=== PATIENT | female | born 1970 | race Caucasian/White ===

== ENCOUNTER 2018-08-05 17:29 | Emergency (ER) | payer OTHER | END 2018-08-05 18:18 | disposition left against medical advice (07) | LOC: M.ERS 17:29 | DX: Z53.21 Procedure and treatment not carried out due to patient leaving prior to being seen by health care provider (principal) ==

== ENCOUNTER 2018-08-16 19:13 | Emergency (ER) | payer OTHER ==
[~2018-08-16] VITALS: Ht 162.6 cm; Wt 63.5 kg
[2018-08-16] MEDS ORDERED: TRAMADOL 50 MG50 MG PO (19:32)
[2018-08-16] MEDS ORDERED: NEURONTIN 300300 M1 PO (19:32)
[2018-08-16 20:17] LABS: ABSOLUTE BASOPHILS 0.1 thou/uL (0.0-0.2); ABSOLUTE EOSINOPHILS 0.1 thou/uL (0.0-0.7); ABSOLUTE LYMPHOCYTES 1.7 thou/uL (0.8-5.3); ABSOLUTE MONOCYTES 1.8 thou/uL (0.0-1.2); ABSOLUTE NEUTROPHILS 10.2 thou/uL (1.6-8.1); BASOPHILS 0.7 %; HEMATOCRIT 28.8 % (37.0-47.0); HEMOGLOBIN 8.5 gm/dL (12.0-15.0); LYMPHOCYTES 12.2 %; MCH 18.2 pg (26.0-34.0); MCHC 29.5 g/dL (28.0-37.0); MCV 61.5 fL (80.0-100.0); MPV 8.1 fl. (7.2-11.1); NUCLEATED RBCS 0 /100WBC; PLATELET COUNT* 533 thou/uL (150-400); POLYS 73.1 %; RBC 4.69 mil/uL (4.20-5.00); RDW-CV 18.4 % (10.5-14.5); WBC 13.9 thou/uL (4.0-11.0)
[2018-08-16 21:03] LABS: CALCIUM 8.9 mg/dL (8.5-10.1); CREATININE 0.6 mg/dL (0.6-1.3); POTASSIUM 4.8 mmol/L (3.5-5.1)
[2018-08-16 21:08] LABS: ALBUMIN 3.5 g/dL (3.4-5.0); TOTAL BILIRUBIN 0.2 mg/dL (<0.1-1.0); TOTAL PROTEIN 7.9 g/dL (6.4-8.2)
[2018-08-16 21:29] LABS: ANISOCYTOSIS 1+; HYPOCHROMASIA 2+; MICROCYTES 3+
[2018-08-16 21:30] LABS: POLYCHROMASIA Occasional
[2018-08-16 21:31] LABS: LARGE PLATELETS OCCASIONAL; PLATELET ESTIMATE INCREASED
[2018-08-16] MEDS ORDERED: COLACE100 MG PO (23:08)
[2018-08-16 23:11] LABS: URINE BILIRUBIN NEGATIVE (Negative); URINE BLOOD 3+ (Negative); URINE CLARITY CLEAR; URINE COLOR YELLOW; URINE GLUCOSE-RANDOM NEGATIVE (Negative); URINE KETONES NEGATIVE (Negative); URINE LEUKOCYTES-REFLEX NEGATIVE (Negative); URINE NITRITE-REFLEX NEGATIVE (Negative); URINE PROTEIN NEGATIVE (Negative); URINE SPECIFIC GRAVITY <= 1.005 (1.005-1.030); URINE UROBILINOGEN 0.2 E.U./dl (0.2-1.0)
[2018-08-16 23:56] LABS: CASTS None Seen /LPF (None Seen); SQUAMOUS 4-10 Moderate /LPF (0-3)
[2018-08-16 23:57] VITALS: BP 121/67
[2018-08-16 23:57] LABS: BACTERIA-REFLEX 1-9 Few /HPF (None Seen); URINE WBC-REFLEX 6-15 Few /HPF (0-5)
[2018-08-16 23:58] LABS: CRYSTALS None Seen /LPF (None Seen)
== END 2018-08-16 23:57 | disposition home or self-care (01) ==
LOC: M.ERS 19:13
PROVIDERS: Nurse Practitioner Family
DX: K59.00 Constipation, unspecified (principal); R42 Dizziness and giddiness; Z88.6 Allergy status to analgesic agent; Z88.1 Allergy status to other antibiotic agents

== ENCOUNTER 2018-12-17 12:27 | Emergency (ER) | payer OTHER ==
[~2018-12-17] VITALS: Ht 165.1 cm; Wt 63.5 kg
[~2018-12-17 12:27] MED LIST: COLACE100 MG PO; NEURONTIN 300300 M1 PO; TRAMADOL 50 MG50 MG PO
[2018-12-17] MEDS ORDERED: NORCO 5-325 TA1 EAC1 PO (14:14)
[2018-12-17] MEDS ORDERED: IBUPROFEN 600600 M1 PO ×2 (14:14→14:16)
[2018-12-17 14:33] VITALS: BP 130/60
== END 2018-12-17 14:34 | disposition home or self-care (01) ==
LOC: M.ERS 12:27
DX: S92.352A Displaced fracture of fifth metatarsal bone, left foot, initial encounter for closed fracture (principal); S93.492A Sprain of other ligament of left ankle, initial encounter; Z98.51 Tubal ligation status; W01.0XXA Fall on same level from slipping, tripping and stumbling without subsequent striking against object, initial encounter; Y93.89 Activity, other specified; Y92.89 Other specified places as the place of occurrence of the external cause; Y99.8 Other external cause status; Z88.8 Allergy status to other drugs, medicaments and biological substances